=== PATIENT | male | born 1960 | race Two or more races ===

== ENCOUNTER 2022-08-20 18:04 | Inpatient (IN) | payer OTHER ==
[2022-08-19 23:55] VITALS: BP 124/73
[~2022-08-20] VITALS: Ht 177.8 cm; Wt 100.7 kg
[2022-08-20] MEDS ORDERED: IV NS 0.9% 1,000 ML BAG IV ONE (19:00)
--- NOTE | 2022-08-20 19:17 | NUR ---
BLOOD DRAWN AND SENT TO LAB
--- NOTE | 2022-08-20 19:18 | NUR ---
DR. KEENAN ROSS [phone]
[2022-08-20 19:34] LABS: BASOPHILS # (AUTO) 0.1 K/uL (0.0-0.2); EOSINOPHILS % (AUTO) 1.1 % (0.0-6.0); HEMATOCRIT 41 % (39-51); HEMOGLOBIN 13.4 g/dL (13.5-17.5); LYMPHOCYTES # (AUTO) 1.8 K/uL (0.8-4.8); LYMPHOCYTES % (AUTO) 16.2 % (20.0-44.0); MEAN CORPUSCULAR HGB CONC 33 g/dl (31.0-36.0); MEAN CORPUSCULAR VOLUME 91 fL (80-96); MONOCYTES # (AUTO) 0.9 K/uL (0.1-1.30); MONOCYTES % (AUTO) 8.1 % (2.0-12.0); NEUTROPHILS # (AUTO) 8.2 K/uL (1.8-8.9); NEUTROPHILS % (AUTO) 73.6 % (43.0-81.0); PLATELET COUNT (AUTO) 112 K/uL (150-450); RED BLOOD CELL COUNT(AUTO) 4.46 MIL/uL (4.5-6.0); WHITE BLOOD COUNT (AUTO) 11.1 K/uL (4.3-11.0)
[2022-08-20 20:17] LABS: ALBUMIN 3.5 g/dL (3.4-5.0); BILIRUBIN,DIRECT 0.2 mg/dL (0.0-0.2); BILIRUBIN,TOTAL 0.7 mg/dL (0.2-1.0); CALCIUM, SERUM 9.4 mg/dL (8.5-10.1); POTASSIUM 5.6 mmol/L (3.5-5.1); TOTAL PROTEIN, SERUM 7.3 g/dL (6.4-8.2)
[2022-08-20] MEDS ORDERED: SODIUM POLYSTYRENE SULFONATE 15 G/60 ML BOTTLE PO ONE (20:30)
[2022-08-20] MEDS ORDERED: INSULIN REGULAR, HUMAN 100 UNIT/ML 10 ML VIAL IV ONE (20:30)
[2022-08-20] MEDS ORDERED: DEXTROSE 50%-WATER 50 ML DISP.SYRIN IV ONE (20:30)
[2022-08-20] MEDS ORDERED: FUROSEMIDE 40 MG/4 ML VIAL IV ONE (20:30)
[2022-08-20] MEDS ORDERED: ALBUTEROL FS 2.5 MG/3 ML VIAL.NEB NEB ONE (20:30)
[2022-08-20] MEDS ORDERED: FUROSEMIDE 20 MG/2 ML VIAL ONE (20:38)
--- NOTE | 2022-08-20 21:03 | NUR ---
SWAB FOR COVID19 SENT TO LAB
--- NOTE | 2022-08-20 21:46 | NUR ---
TO UPDATE BROTHER TIANNA AT [phone]
[2022-08-20] MEDS ORDERED: ACETAMINOPHEN 325 MG TABLET PO PRN (23:00)
[2022-08-20] MEDS ORDERED: ONDANSETRON HCL/PF 4 MG/2 ML VIAL IVP PRN (23:00)
[2022-08-20] MEDS ORDERED: DEXTROSE 50%-WATER 50 ML DISP.SYRIN IV PRN (23:30)
--- NOTE | 2022-08-20 23:33 | NUR ---
REPORT GIVEN TO ARACELI LOPEZ ROOM 315 FOR HELENE
--- NOTE | 2022-08-20 23:57 | NUR ---
PT TRANSPORTED TO UNIT ON [address] WITH EMT AND RN AT BEDSIDE WITH ACLS PROTOCOL. NAD NOTED DURING TRANSPORT.
[2022-08-21] VITALS: BP 124/73
[2022-08-21] MEDS: HEPARIN SODIUM, PORCINE 5000 UNITS/1 ML VIAL SQ SCH ×3 (00:16→21:08)
--- NOTE | 2022-08-21 00:45 | NUR ---
COAL PULVERIZING OPERATORPUBLIC UTILITIES SALES REPRESENTATIVE NOTE PATIENT ARRIVED ON UNIT, ALERT/ORIENTED X 4, PT ABLE TO MAKE NEEDS KNOWN. PATIENT STABLE ON RA, NO S/S OF DISTRESS OR SOB NOTED, BREATHING EVEN AND UNLABORED. PATIENT NOTED WITH BILATERAL PLANTAR FOOT BLISTERS AND LEFT ANKLE WOUND, WOUND PHOTOS TAKEN AND PLACED IN CHART. PATIENT C/O RIGHT KNEE PAIN, STATED HE FELL PRIOR TO ADMISSION, PT REQUESTED TYLENOL 650 MG PO GIVEN. IV ACCESS ON LEFT HAND #20G INTACT AND FLUSHING WELL, SALINE LOCKED. PATIENT BELONGINGS DOCUMENTED. PATIENT PLACED ON TELE MONITOR, READING SINUS RHYTHM, HR: 78. PATIENT GIVEN URINAL TO COLLECT URINE SAMPLE. ORIENTED PATIENT TO ROOM AND HOW TO USE CALL LIGHT. SAFETY MEASURES IN PLACE: CALL LIGHT WITHIN REACH, SIDE RAILS UP X 2, BED LOCKED IN LOWEST POSITION, HOB ELEVATED, BED ALARM ON. WILL CONTINUE TO MONITOR PATIENT
--- NOTE | 2022-08-21 01:41 | NUR ---
MONITOR WORKER NOTE PATIENT C/O OF RIGHT KNEE PAIN, STATED HE HAD A FALL PRIOR TO ADMISSION, NO XRAY TAKEN IN ER. CONTACTED [employer] LAYNE CORTÉS WITH ORDER FOR XRAY OF RIGHT KNEE. ORDER PLACED
[2022-08-21 04:00] VITALS: BP 139/75
--- NOTE | 2022-08-21 06:30 | NUR ---
MONEY POSITION OFFICER CLOSING NOTE PATIENT SLEEPING IN BED, ALERT/ORIENTED X 4, PT ABLE TO MAKE NEEDS KNOWN. PATIENT STABLE ON RA, NO S/S OF DISTRESS OR SOB NOTED, BREATHING EVEN AND UNLABORED. PATIENT ON TELE MONITOR READING SINUS RHYTHM, HR: 82. DRESSING ON BILATERAL FEET C/D/I. IV ACCESS ON LEFT HAND #20G INTACT AND SALINE LOCKED. MEDICATIONS GIVEN ORDERED, PT NEEDS MET THROUGHOUT SHIFT, PT SLEPT WELL THROUGH THE NIGHT, NO SIGNIFICANT CHANGES THIS SHIFT. SAFETY MEASURES IN PLACE: CALL LIGHT WITHIN REACH, SIDE RAILS UP X 2, BED LOCKED IN LOWEST POSITION, HOB ELEVATED, BED ALARM ON. WILL ENDORSE TO DAYSHIFT RN FOR CONTINUITY OF CARE
[2022-08-21] MEDS: BLOOD SUGAR DIAGNOSTIC 1 EACH STRIP IN SCH ×4 (06:45→21:18)
[2022-08-21] MEDS: INSULIN REGULAR, HUMAN 100 UNIT/ML 3 ML VIAL SQ PRN ×4 (06:48→21:33)
--- NOTE | 2022-08-21 07:15 | NUR ---
DIRECTOR OF MARKETING OPERATIONS OPENING NOTE RECEIVED PATIENT AWAKE, A/O X 4, PT ABLE TO MAKE NEEDS KNOWN. NO SIGNS OF ACUTE DISTRESS NOTED. ON ROOM AIR, TOLERATING WELL. NO SOB NOTED, BREATHING EVEN AND UNLABORED. PATIENT ON TELE MONITOR READING SINUS RHYTHM, HR: 87. DRESSING ON BILATERAL FEET CLEAN. DRY AND INTACT. WITH IV ACCESS ON LEFT HAND #20G INTACT AND SL. SAFETY MEASURES IN PLACE: CALL LIGHT WITHIN REACH, SIDE RAILS UP X 2, BED LOCKED IN LOWEST POSITION, HOB ELEVATED, BED ALARM ON. WILL CONTINUE TO MONITOR.
[2022-08-21 07:48] LABS: BASOPHILS # (AUTO) 0.1 K/uL (0.0-0.2); BASOPHILS % (AUTO) 0.8 % (0.0-2.0); EOSINOPHILS % (AUTO) 1.3 % (0.0-6.0); HEMATOCRIT 38 % (39-51); HEMOGLOBIN 12.7 g/dL (13.5-17.5); LYMPHOCYTES # (AUTO) 2.1 K/uL (0.8-4.8); LYMPHOCYTES % (AUTO) 20.7 % (20.0-44.0); MEAN CORPUSCULAR HGB CONC 33 g/dl (31.0-36.0); MEAN CORPUSCULAR VOLUME 90 fL (80-96); MONOCYTES # (AUTO) 0.9 K/uL (0.1-1.30); MONOCYTES % (AUTO) 8.5 % (2.0-12.0); NEUTROPHILS % (AUTO) 68.7 % (43.0-81.0); PLATELET COUNT (AUTO) 101 K/uL (150-450); RED BLOOD CELL COUNT(AUTO) 4.28 MIL/uL (4.5-6.0); WHITE BLOOD COUNT (AUTO) 10.2 K/uL (4.3-11.0)
[2022-08-21 08:00] VITALS: BP 164/83
[2022-08-21 08:09] LABS: CALCIUM, SERUM 8.9 mg/dL (8.5-10.1); CREATININE 1.5 mg/dL (0.6-1.3); MAGNESIUM 1.5 mg/dL (1.8-2.4); PHOSPHORUS 2.8 mg/dL (2.5-4.9); POTASSIUM 4.5 mmol/L (3.5-5.1)
[2022-08-21] MEDS ORDERED: PANTOPRAZOLE 40 MG VIAL IV SCH (09:00)
[2022-08-21] MEDS ORDERED: MAGNESIUM OXIDE 400 MG TABLET PO ONE (09:30)
[2022-08-21] MEDS: FUROSEMIDE 40 MG/4 ML VIAL IV SCH ×3 (09:32→17:03)
[2022-08-21] MEDS: POTASSIUM CHLORIDE 20 MEQ TAB.PRT.SR PO SCH ×3 (09:32→11:35)
[2022-08-21 09:57] LABS: BILIRUBIN,URINE NEGATIVE (NEGATIVE); COLOR,URINE YELLOW (YELLOW); LEUKOCYTE ESTERASE ,URINE NEGATIVE (NEGATIVE); NITRITE, URINE NEGATIVE (NEGATIVE); PH,URINE 5.5 (5.0-8.0); PROTEIN,URINE 3+ mg/dl (NEGATIVE); UGLUCOSE 2+ mg/dL (NEGATIVE); UROBILINOGEN,URINE 0.2 EU/dL (0.2)
[2022-08-21] MEDS ORDERED: TRAZ-257 PO (10:09)
[2022-08-21] MEDS ORDERED: ATOR10TA PO (10:09)
[2022-08-21] MEDS ORDERED: INSU100I14 SQ (10:09)
[2022-08-21] MEDS ORDERED: MEMA5TAB42 PO (10:09)
[2022-08-21] MEDS ORDERED: BUSP15TA3 PO (10:09)
[2022-08-21] MEDS ORDERED: INSU100V7 SQ (10:09)
[2022-08-21] MEDS ORDERED: LISI20TA30 PO (10:09)
[2022-08-21] MEDS ORDERED: INSU100V27 SQ (10:09)
[2022-08-21] MEDS ORDERED: DOXE50CA4 PO (10:09)
[2022-08-21] MEDS ORDERED: PREG150C93 PO (10:09)
[2022-08-21 10:13] LABS: BACTERIA,URINE Few /HPF (None Seen); SQUAMOUS EPITHELIAL CELL,UR Few /HPF (None Seen)
[2022-08-21 12:00] VITALS: BP 128/85
[2022-08-21 12:35] LABS: CREATININE, URINE 59.9 MG/DL (30.0-125.0)
--- NOTE | 2022-08-21 13:15 | NUR ---
HYBRID TESTER SEEN BY HOSPITALIST GISELA CARVAJAL.
[2022-08-21] MEDS: PREGABALIN 100 MG CAPSULE PO SCH ×2 (14:06→17:01)
[2022-08-21] MEDS: busPIRone 5 MG TABLET PO SCH ×2 (14:06→17:02)
[2022-08-21] MEDS: PREGABALIN 25 MG CAPSULE PO SCH ×2 (14:06→17:02)
[2022-08-21 16:21] VITALS: BP 118/71
[2022-08-21] MEDS: MEMANTINE HCL 5 MG TABLET PO SCH (17:02)
[2022-08-21] MEDS: NICOTINE PATCH (21MG) 21 MG PATCH.TD24 TD SCH (17:04)
[2022-08-21] MEDS ORDERED: ATORVASTATIN 10 MG TABLET PO SCH (18:00)
--- NOTE | 2022-08-21 18:30 | NUR ---
RN NOTE: ORTHOSTATIC B/P LYING: B/P 127/72 , P 84 SITTING: B/P 134/70, P 92 STANDING: B/P 100/60, P 94
--- NOTE | 2022-08-21 19:03 | NUR ---
HYDROPRESS OPERATOR CLOSING NOTE PATIENT AWAKE, A/O X 4, PT ABLE TO MAKE NEEDS KNOWN. NO SIGNS OF ACUTE DISTRESS NOTED. ON O2 INHALATION AT 2LPM VIA NC TOLERATING WELL, SATURATING 95%. NO SOB NOTED, BREATHING EVEN AND UNLABORED. PATIENT ON TELE MONITOR READING SINUS RHYTHM, HR: 83. DRESSING ON BILATERAL FEET CLEAN, DRY AND INTACT. WITH IV ACCESS ON LEFT HAND #20G INTACT AND SL. ALL NEEDS ATTENDED. DUE MEDS GIVEN ORDER NOTED. SAFETY MEASURES IN PLACE: CALL LIGHT WITHIN REACH, SIDE RAILS UP X 2, BED LOCKED IN LOWEST POSITION, HOB ELEVATED, BED ALARM ON. WILL CONTINUE TO MONITOR.
--- NOTE | 2022-08-21 19:30 | NUR ---
LUMBER SORTER OPENING NOTES - RECEIVED PATIENT BEING WHEELED TO HIS ROOM BACK FROM CT SCAN. A/O X4. BREATHING EVEN AND NON-LABORED, ON O2 AT 2LPM VIA NASAL CANULA. NOT IN APPARENT DISTRESS. DENIES ANY PAIN AT THIS TIME. ON TELE MONITOR READING SINUS RHYTHM AT 88 BPM. HAS LEFT HAND IV ACCESS #20G AND SALINE LOCKED. NO S/S OF INFILTRATION NOTED. BILATERAL FEET DRESSING INTACT. ENCOURAGED TO EAT DINNER BUT REFUSED. ASKING FOR A SODA AND ADVISED THAT KITCHEN IS CLOSE. SAFETY PRECAUTIONS IN PLACE: BED LOCKED AND IN LOW POSITION, SIDE RAILS UP X2, CALL LIGHT WITHIN REACH. WILL CONTINUE PLAN OF CARE.
[2022-08-21 20:00] VITALS: BP 118/67
[2022-08-21] MEDS ORDERED: TRAZODONE 50 MG TABLET PO SCH (22:00)
[2022-08-21] MEDS ORDERED: DOXEPIN HCL (25 MG) 25 MG CAPSULE PO SCH (22:00)
--- NOTE | 2022-08-21 22:01 | NUR ---
PATIENT VERBALIZED HE TAKES LYRICA 150MG TID (AM, PM AND HS) AT HOME. RECEIVED 2 DOSES TODAY, HE IS INSISTING TO GET ONE NOW SINCE IT HELPS HIM SLEEP. NOTIFIED HOSPITALIST LAYNE CORTÉS AND ORDERED LYRICA 150MG PO X1 NOW, CHANGE TOMORROW'S DOSE TO BID AND HS. NOTED AND CARRIED OUT.
[2022-08-21] MEDS ORDERED: PREGABALIN 25 MG CAPSULE PO ONE (22:30)
[2022-08-21] MEDS ORDERED: PREGABALIN 100 MG CAPSULE PO ONE (22:30)
[2022-08-22] VITALS: BP 113/61
[2022-08-22 04:00] VITALS: BP 148/93
[2022-08-22] MEDS: BLOOD SUGAR DIAGNOSTIC 1 EACH STRIP IN SCH ×2 (06:45→11:59)
[2022-08-22] MEDS: INSULIN REGULAR, HUMAN 100 UNIT/ML 3 ML VIAL SQ PRN ×2 (06:46→12:20)
--- NOTE | 2022-08-22 06:48 | NUR ---
DIAGRAM CLERK CLOSING NOTES - PATIENT LAYING IN BED, ABLE TO VERBALIZE NEEDS. SATURATING AT 94%-96%, ON O2 AT 2LPM VIA NASAL CANULA FOR COMFORT. NO RESPIRATORY OR CARDIAC DISTRESS NOTED. NO C/O PAIN OR DISCOMFORT AT THIS TIME. AFEBRILE. ON TELE MONITOR READING SINUS RHYTHM AT 99 BPM. LEFT HAND IV ACCESS INTACT, PATENT AND FLUSHING. BILATERAL FEET DRESSING C/D/I. REFUSED SNACKS LAST NIGHT. URINATED ONCE, CLOUDY KARUNA URINE NOTED. HAD A TINY FORMED BM X1. ALL DUE MEDS GIVEN AND NEEDS ATTENDED. SAFETY PRECAUTIONS MAINTAINED. WILL ENDORSE TO NEXT SHIFT FOR HELENE.
[2022-08-22 07:11] LABS: BASOPHILS # (AUTO) 0.1 K/uL (0.0-0.2); BASOPHILS % (AUTO) 0.7 % (0.0-2.0); EOSINOPHILS % (AUTO) 1.4 % (0.0-6.0); HEMATOCRIT 40 % (39-51); LYMPHOCYTES % (AUTO) 20.1 % (20.0-44.0); MEAN CORPUSCULAR HGB CONC 33 g/dl (31.0-36.0); MEAN CORPUSCULAR VOLUME 92 fL (80-96); MONOCYTES # (AUTO) 0.9 K/uL (0.1-1.30); MONOCYTES % (AUTO) 8.7 % (2.0-12.0); NEUTROPHILS # (AUTO) 6.8 K/uL (1.8-8.9); NEUTROPHILS % (AUTO) 69.1 % (43.0-81.0); PLATELET COUNT (AUTO) 95 K/uL (150-450); RED BLOOD CELL COUNT(AUTO) 4.32 MIL/uL (4.5-6.0); WHITE BLOOD COUNT (AUTO) 9.9 K/uL (4.3-11.0)
[2022-08-22 07:25] LABS: ALBUMIN 2.9 g/dL (3.4-5.0); BILIRUBIN,TOTAL 1.2 mg/dL (0.2-1.0); CALCIUM, SERUM 8.9 mg/dL (8.5-10.1); CREATININE 1.6 mg/dL (0.6-1.3); MAGNESIUM 1.3 mg/dL (1.8-2.4); PHOSPHORUS 2.5 mg/dL (2.5-4.9); POTASSIUM 4.3 mmol/L (3.5-5.1); TOTAL PROTEIN, SERUM 6.9 g/dL (6.4-8.2)
--- NOTE | 2022-08-22 07:30 | NUR ---
PT RECEIVED RESTING COMFORTABLY IN BED. NO S/S OR C/O PAIN OR DISTRESS NOTED. SIDE RAILS UP X2, CALL LIGHT LEFT WITHIN REACH. WILL CONTINUE PLAN OF CARE.
[2022-08-22] MEDS: NICOTINE PATCH (21MG) 21 MG PATCH.TD24 TD SCH (08:33)
[2022-08-22] MEDS: MEMANTINE HCL 5 MG TABLET PO SCH (08:34)
[2022-08-22] MEDS: busPIRone 5 MG TABLET PO SCH ×2 (08:34→12:16)
[2022-08-22] MEDS: HEPARIN SODIUM, PORCINE 5000 UNITS/1 ML VIAL SQ SCH (08:37)
[2022-08-22 08:56] VITALS: BP 130/76
[2022-08-22] MEDS ORDERED: PREGABALIN 100 MG CAPSULE PO SCH ×2 (09:00→22:00)
[2022-08-22] MEDS ORDERED: PANTOPRAZOLE 40 MG TABLET.DR PO SCH (09:00)
[2022-08-22] MEDS ORDERED: PREGABALIN 25 MG CAPSULE PO SCH ×2 (09:00→22:00)
[2022-08-22 10:00] VITALS: BP 130/76
--- NOTE | 2022-08-22 10:24 | NUR ---
WOUND CARE CONSULT: PT WORKING WITH P.T. AT THE TIME OF CONSULT BUT ADMISSION PHOTOS INDICATE SEVERE OPEN BLISTERS TO PLANTAR FEET, PRESENT ON ADMISSION. PT STATES THAT HE SMOKES HEAVILY AND HAS NEUROPATHY. DR JOVEL CALLED FOR DPM CONSULT. IN AGREEMENT WITH PLAN OF CARE.
[2022-08-22] MEDS: Magnesium 1GM/D5W 100ML PREMIX 100 ML IV SCH ×2 (10:29→11:59)
[2022-08-22 12:00] VITALS: BP 116/70
--- NOTE | 2022-08-22 15:40 | NUR ---
DISCHARGE INSTRUCTIONS GIVEN ORDERED. ENCOURAGED TO FOLLOW UP WITH PMD INSTRUCTED. ALL QUESTIONS AND CONCERNS ADDRESSED. PATIENT VERBALIZED UNDERSTANDING. MEDICATION RECONCILIATION FORM COMPLETED AND COPY GIVEN TO PATIENT. IV REMOVED WITH CATHETER INTACT, PRESSURE DRESSING APPLIED. TELE UNIT RETURNED TO STATION. PATIENT TAKEN TO VEHICLE VIA WHEEL CHAIR WITH ALL PERSONAL BELONGINGS ACCOMPANIED BY STAFF AND FAMILY MEMBER. NO DISTRESS NOTED AT TIME OF DEPARTURE.
[2022-08-23] MEDS ORDERED: SILVER SULFADIAZINE CREAM 25 GM TUBE TP SCH (09:00)
[2022-08-23 09:07] LABS: *ANA ANTI-CENTROMERE B AB <0.2 AI (0.0-0.9); *ANA ANTI-DNA(DS) AB, QN <1 IU/mL (0-9); *ANA ANTI-JO-1 <0.2 AI (0.0-0.9); *ANA ANTICHROMATIN ANTIBODY <0.2 AI (0.0-0.9); *ANA RNP ANTIBODIES 0.6 AI (0.0-0.9); *ANA SJOGREN'S ANTI-SS-A <0.2 AI (0.0-0.9); *ANA SJOGREN'S ANTI-SS-B <0.2 AI (0.0-0.9); *ANAANTI-SCLERODERMA-70 AB <0.2 AI (0.0-0.9); *ANASMITH AB <0.2 AI (0.0-0.9)
== END 2022-08-22 15:30 | disposition home health service (06) | DRG 40 ==
LOC: ER 18:39 → TELE 23:02
PROVIDERS: ADMIT Nurse Practitioner Acute Care; ATTEND Nurse Practitioner Family
PROC: 0JBR0ZZ Excision of Left Foot Subcutaneous Tissue and Fascia, Open Approach (ICD-10-PCS; principal; 2022-08-22)
PROC: 0JBQ0ZZ Excision of Right Foot Subcutaneous Tissue and Fascia, Open Approach (ICD-10-PCS; 2022-08-22)
DX: G90.8 Other disorders of autonomic nervous system (principal); I50.23 Acute on chronic systolic (congestive) heart failure; N17.0 Acute kidney failure with tubular necrosis; E87.1 Hypo-osmolality and hyponatremia; D68.59 Other primary thrombophilia; L97.429 Non-pressure chronic ulcer of left heel and midfoot with unspecified severity; L97.419 Non-pressure chronic ulcer of right heel and midfoot with unspecified severity; I11.0 Hypertensive heart disease with heart failure; E86.1 Hypovolemia; E11.65 Type 2 diabetes mellitus with hyperglycemia; E66.01 Morbid (severe) obesity due to excess calories; R74.8 Abnormal levels of other serum enzymes; E11.42 Type 2 diabetes mellitus with diabetic polyneuropathy; E87.5 Hyperkalemia; E11.621 Type 2 diabetes mellitus with foot ulcer; E83.42 Hypomagnesemia; I70.0 Atherosclerosis of aorta; T31.0 Burns involving less than 10% of body surface; T25.022A Burn of unspecified degree of left foot, initial encounter; T25.021A Burn of unspecified degree of right foot, initial encounter; T79.8XXA Other early complications of trauma, initial encounter; Z88.0 Allergy status to penicillin; X11.0XXA Contact with hot water in bath or tub, initial encounter; Y93.E1 Activity, personal bathing and showering; Y92.002 Bathroom of unspecified non-institutional (private) residence as the place of occurrence of the external cause; Y99.8 Other external cause status
CPT/HCPCS: 36415; 70450-TC; 71045-TC; 73564-TC; 73700-TC; 76770-TC; 80048-TC; 80053-TC; 80061-TC; 80076-TC; 81001; 82570-TC; 82962-TC; 83690-TC; 83735-TC; 83880; 84100-TC; 84300-TC; 84484-TC; 85025-TC; 86225; 86235; 86706; 86803; 87081-TC; 93307-TC; 97112-TC; 97530-TC; A4223; A6403; C9113; C9803; G0378; J1644; J1815; J1940; J3475; J7050